=== PATIENT | female | born 1980 | race Caucasian/White ===

== ENCOUNTER 2020-07-06 13:31 | Emergency (ER) | payer SELFPAY ==
[2020-07-06 15:12] LABS: SARS-COV-2 RT PCR NEGATIVE (NEGATIVE)
--- NOTE | 2020-07-06 15:57 | ER ---
Nurse's Notes [facility] Name: Carrie Cat Age: 39 yrs Sex: Female : 1980 Arrival Date: 07/06/2020 Time: 13:31 Bed Waiting Private MD: Diagnosis: Acute bronchitis Presentation: 07/06 13:54 Chief complaint: Patient states: chest congestion, head congestion, generalized sv weakness x 1 day. Fatigue since Saturday. Coronavirus screen: Client denies travel out of the [place] in the last 14 days. At this time, the client does not indicate any symptoms associated with coronavirus-19. Ebola Screen: No symptoms or risks identified at this time. Risk Assessment: Do you want to hurt yourself or someone else? Patient reports no desire to harm self or others. Onset of symptoms was June 2020. 13:54 Method Of Arrival: Ambulatory sv 13:54 Acuity: TOSIN 4 sv 13:55 Initial Sepsis Screen: Does the patient meet any 2 criteria? HR > 90 bpm. No. Patient's sv initial sepsis screen is negative. Does the patient have a suspected source of infection? No. Patient's initial sepsis screen is negative. Triage Assessment: 13:54 General: Appears in no apparent distress. comfortable, Behavior is calm, cooperative, sv appropriate for age. Neuro: Level of Consciousness is awake, alert, obeys commands, Oriented to person, place, time, situation, Moves all extremities. Full function Gait is steady. Respiratory: Respiratory effort is even, unlabored. Historical: - Allergies: 13:55 No Known Allergies; sv Screenin:53 Abuse screen: Denies threats or abuse. Denies injuries from another. Nutritional sv screening: No deficits noted. Tuberculosis screening: No symptoms or risk factors identified. Fall Risk None identified. Vital Signs: 13:55 BP 118 / 83; Pulse 101; Resp 18; Temp 98.1; Pulse Ox 100% ; Weight 63.5 kg; Height 5 sv ft. 6 in. (167.64 cm); Pain 3/10; 13:55 Body Mass Index 22.60 (63.50 kg, 167.64 cm) sv ED Course: 13:31 Patient arrived in ED. as 13:54 Triage completed. sv 13:54 Arm band placed on. sv 13:58 Iza Huizar FNP-C is [facility]. kb 13:58 Dale Ward MD is Attending Physician. kb 13:59 COVID swab sent to lab. Flu and/or RSV swab sent to lab. sv 15:08 COVID-19 : Document "Date of Symptom Onset" if Symptomatic. Sent. sv 15:08 Flu Sent. sv 15:53 Nurse Practitioner and/or Physician [employer] to see patient. sv 15:53 Patient has correct armband on for positive identification. sv 15:53 No provider procedures requiring assistance completed. Patient did not have IV access sv during this emergency room visit. Administered Medications: No medications were administered Outcome: 15:56 Discharge ordered by . kb 16:00 Patient left the ED. sv Signatures: Iza Huizar FNP-C FNP-Ckb Verde, Stephanie, DEEP RN sv Antoinette He as Corrections: (The following items were deleted from the chart) 13:58 13:55 Pulse 101bpm; Resp 18bpm; Pulse Ox 100%; Temp 98.1F; 63.5 kg; Height 5 ft. 6 in.; sv BMI: 22.6; Pain 3/10; sv
--- NOTE | 2020-07-06 15:57 | EDPHYS ---
Physician Documentation [facility] Name: Carrie Cat Age: 39 yrs Sex: Female : 1980 Arrival Date: 07/06/2020 Time: 13:31 Bed Waiting Private MD: ED Physician Dale Ward HPI: 07/06 16:02 This 39 yrs old Female presents to ER via Ambulatory with complaints of Chest kb Congestion. Historical: - Allergies: 13:55 No Known Allergies; sv ROS: 15:59 Constitutional: Negative for fever, chills, and weight loss, Cardiovascular: Negative kb for chest pain, palpitations, and edema, Abdomen/GI: Negative for abdominal pain, nausea, vomiting, diarrhea, and constipation, MS/Extremity: Negative for injury and deformity, Skin: Negative for injury, rash, and discoloration, Neuro: Negative for headache, weakness, numbness, tingling, and seizure. 15:59 ENT: Positive for sinus congestion, sinus pain. 15:59 Respiratory: Positive for cough, with no reported sputum. Exam: 15:59 Constitutional: This is a well developed, well nourished patient who is awake, alert, kb and in no acute distress. Head/Face: Normocephalic, atraumatic. ENT: Nares patent. No nasal discharge, no septal abnormalities noted. Tympanic membranes are normal and external auditory canals are clear. Oropharynx with no redness, swelling, or masses, exudates, or evidence of obstruction, uvula midline. Mucous membranes moist. Chest/axilla: Normal chest wall appearance and motion. Nontender with no deformity. No lesions are appreciated. Cardiovascular: Regular rate and rhythm with a normal S1 and S2. No gallops, murmurs, or rubs. Normal PMI, no JVD. No pulse deficits. Abdomen/GI: Soft, non-tender, with normal bowel sounds. No distension or tympany. No guarding or rebound. No evidence of tenderness throughout. Skin: Warm, dry with normal turgor. Normal color with no rashes, no lesions, and no evidence of cellulitis. MS/ Extremity: Pulses equal, no cyanosis. Neurovascular intact. Full, normal range of motion. Neuro: Awake and alert, GCS 15, oriented to person, place, time, and situation. Cranial nerves II-XII grossly intact. Motor strength 5/5 in all extremities. Sensory grossly intact. Cerebellar exam normal. Normal gait. 15:59 Respiratory: the patient does not display signs of respiratory distress, Respirations: normal, symetrical, Breath sounds: wheezing: expiratory that is mild, is scattered. Vital Signs: 13:55 BP 118 / 83; Pulse 101; Resp 18; Temp 98.1; Pulse Ox 100% ; Weight 63.5 kg; Height 5 sv ft. 6 in. (167.64 cm); Pain 3/10; 13:55 Body Mass Index 22.60 (63.50 kg, 167.64 cm) sv MDM: 15:55 Patient medically screened. kb 16:01 Data reviewed: vital signs, nurses notes. Data interpreted: Pulse oximetry: on room air kb is 100 %. Interpretation: normal. Counseling: I had a detailed discussion with the patient and/or guardian regarding: the historical points, exam findings, and any diagnostic results supporting the discharge/admit diagnosis, lab results, radiology results, the need for outpatient follow up, a family practitioner, to return to the emergency department if symptoms worsen or persist or if there are any questions or concerns that arise at home. 07/06 13:58 Order name: Flu kb 07/06 13:58 Order name: COVID-19 : Document "Date of Symptom Onset" if Symptomatic. 07/06 15:12 Order name: COVID-19/FLU A+B; Complete Time: 15:18 EDMS Administered Medications: No medications were administered Disposition: 17:34 Co-signature as Attending Physician, Dale Ward MD I agree with the assessment and kdr plan of care. Disposition: 07/06/20 15:56 Discharged to Home. Impression: Acute bronchitis. - Condition is Stable. - Discharge Instructions: Acute Bronchitis, Zioo-by-Qaim. - Prescriptions for Prednisone 20 mg Oral Tablet - take 1 tablet by ORAL route once daily for 5 days; 5 tablet. Albuterol Sulfate 90 mcg/actuation - inhale 1-2 puff by INHALATION route every 4-6 hours; 1 Inhaler. Zithromax 500 mg Oral Tablet - take 1 tablet by ORAL route once daily for 5 days; 5 tablet. - Medication Reconciliation Form, Thank You Letter, Antibiotic Education, Prescription Opioid Use form. - Follow up: Emergency Department; When: As needed; Reason: Worsening of condition. Follow up: Private Physician; When: 2 - 3 days; Reason: Recheck today's complaints, Continuance of care, Re-evaluation by your physician. Signatures: Dispatcher [employer] [facility] Iza Huizar, Sosa Rothman, RN RN Dale Ward MD MD [facility] Corrections: (The following items were deleted from the chart) 14:28 13:59 CORONAVIRUS ordered. [facility] 14:29 13:59 Influenza Screen (A ordered. [facility] 16:00 15:56 07/06/2020 15:56 Discharged to Home. Impression: Acute bronchitis. Condition is sv Stable. Forms are Medication Reconciliation Form, Thank You Letter, Antibiotic Education, Prescription Opioid Use. Follow up: Emergency Department; When: As needed; Reason: Worsening of condition. Follow up: Private Physician; When: 2 - 3 days; Reason: Recheck today's complaints, Continuance of care, Re-evaluation by your physician. kb
[2020-07-06 16:07] VITALS: BP 118/83; TEMP 98.1; O2SAT 100
== END 2020-07-06 16:00 | disposition home or self-care (01) ==
LOC: ER 13:31
DX: J20.9 Acute bronchitis, unspecified (principal); Z20.822 Contact with and (suspected) exposure to COVID-19
CPT/HCPCS: 0240U; 99282